=== PATIENT | male | born 1990 | race Caucasian/White ===

== ENCOUNTER 2023-04-25 03:47 | Emergency (ER) | payer BC, SELFPAY ==
[2023-04-25] MEDS ORDERED: Doxycycline 100 MG CAP ONE (05:20)
[2023-04-25] MEDS ORDERED: Naloxone HCl 2 mg/2 ml Syringe ONE (05:34)
[2023-04-25] MEDS ORDERED: Naloxone HCl 0.4 mg/ml Vial ONE (05:36)
== END 2023-04-25 05:51 | disposition home or self-care (01) ==
LOC: ERS 03:47
DX: L02.416 Cutaneous abscess of left lower limb (principal)
CPT/HCPCS: J2310

== ENCOUNTER 2023-12-06 06:42 | Emergency (ER) | payer OTHER | END 2023-12-06 08:05 | LOC: ERS 06:42 | DX: Z02.89 Encounter for other administrative examinations (principal) | CPT/HCPCS: 99283 ==